=== PATIENT | male | born 1980 | race Caucasian/White ===

== ENCOUNTER 2018-01-11 14:51 | Emergency (ER) | payer OTHER ==
[2018-01-11] MEDS ORDERED: HYDROmorphone 0.5 MG/0.5 ML SYRINGE ONE ×4 (15:17→20:09)
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
[2018-01-11 15:41] LABS: #Eosinphils 0.3 thou/uL (0.0-0.7); #Lymphocytes 1.5 thou/uL (1.20-3.40); #Neutrophils 11.4 thou/uL (1.40-6.50); %Basophils 0.3 % (0.0-1.0); %Lymphocytes 10.3 % (21.0-51.0); %Monocytes 7.2 % (0.0-10.0); %Neutrophils 80.2 % (42.0-75.0); Hemoglobin 14.5 g/dL (14.0-18.0); Mean Corpuscular HGB CONC 36.1 g/dL (32.0-36.0); Mean Corpuscular Volume 91.5 fl (80.0-94.0); Mean Platelet Volume 7.7 fL (7.4-10.4); Platelet Count 202 thou/uL (130-400); RBC Distribution Width 11.9 % (11.5-14.5); Red Blood Cell (RBC) Count 4.39 mill/uL (4.70-6.10); White Blood Cell (WBC) Count 14.2 thou/uL (4.8-10.8)
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
[2018-01-11 16:01] LABS: ALT (SGPT) 18 U/L (8-55); AST (SGOT) 21 U/L (5-34); Albumin 3.8 g/dL (3.5-5.0); Alkaline Phosphatase 67 U/L (40-150); Anion Gap 13 mmol/L (10-20); BUN (Urea Nitrogen) 16 mg/dL (8.9-20.6); Bilirubin, Total 0.5 mg/dL (0.2-1.2); Calc. Creatinine Clearance 0 mL/min (70-130); Calcium 8.4 mg/dL (7.8-10.44); Carbon Dioxide 22 mmol/L (22-29); Chloride 105 mmol/L (98-107); Estimated GFR-MDRD 65; Globulin 2.4 g/dL (2.4-3.5); Glucose 94 mg/dL (70-105); Potassium 3.7 mmol/L (3.5-5.1); Protein, Total 6.2 g/dL (6.0-8.3); Sodium 136 mmol/L (136-145)
[2018-01-11] MEDS ORDERED: Adacel (T-DAP) 0.5 ML VIAL ONE (17:07)
[2018-01-11 17:44] LABS: Bilirubin Negative (Negative); Blood, Urine Negative (Negative); Clarity CLEAR (Clear); Glucose, Urine (Dipstick) Negative (Negative); Leukocyte Negative (Negative); Nitrite Negative (Negative); Protein, Urine (Dipstick) Negative (Neg-Trace); Urobilinogen 0.2 mg/dL (0.2-1.0); pH, Urine 5.5 (5.0-9.0)
[2018-01-11 17:52] LABS: Specific Gravity, Urine 1.046 (1.002-1.036)
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
--- NOTE | 2018-01-11 18:43 | RAD ---
SCAPULA ONE VIEW: HISTORY: Limited evaluation. There is irregularity involving the inferior aspect of the scapula. Refer to re cent CT. IMPRESSION: Refer to recent CT. POS: [facility]
[2018-01-11] MEDS ORDERED: HYDROcodone/Acetaminophen 10/325 mg Tablet ONE (20:20)
[2018-01-11] MEDS ORDERED: Ketorolac Tromethamine 30 MG/ML VIAL ONE (20:20)
== END 2018-01-11 21:13 | disposition home or self-care (01) ==
LOC: ERS 14:51
DX: S42.192A Fracture of other part of scapula, left shoulder, initial encounter for closed fracture (principal); S01.01XA Laceration without foreign body of scalp, initial encounter; S30.1XXA Contusion of abdominal wall, initial encounter; V68.5XXA Driver of heavy transport vehicle injured in noncollision transport accident in traffic accident, initial encounter; Y92.410 Unspecified street and highway as the place of occurrence of the external cause
CPT/HCPCS: 12001; 36415; 70450; 71260; 72125; 74177; 80053; 81003; 85025; 90471; 90715; 96374; 96375; 96376; G0390; J1170; J1885

== ENCOUNTER 2018-01-17 17:12 | Emergency (ER) | payer OTHER ==
[2018-01-17] MEDS ORDERED: Morphine 4 MG/ML VIAL ONE (18:48)
[2018-01-17] MEDS ORDERED: Ketorolac Tromethamine 30 MG/ML VIAL ONE (18:49)
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
== END 2018-01-17 19:52 | disposition home or self-care (01) ==
LOC: ERS 17:12
DX: S42.192A Fracture of other part of scapula, left shoulder, initial encounter for closed fracture (principal); F17.210 Nicotine dependence, cigarettes, uncomplicated; V69.9XXA Occupant (driver) (passenger) of heavy transport vehicle injured in unspecified traffic accident, initial encounter; Z79.899 Other long term (current) drug therapy
CPT/HCPCS: 96372; J1885; J2270

== ENCOUNTER 2022-01-14 14:46 | Outpatient (CLI) | payer OTHER | END 2022-01-14 14:47 | disposition home or self-care (01) | LOC: BICRAD 14:46 | PROVIDERS: ATTEND Surgery | DX: S22.32XA Fracture of one rib, left side, initial encounter for closed fracture (principal); V89.2XXA Person injured in unspecified motor-vehicle accident, traffic, initial encounter | CPT/HCPCS: 71046 ==